=== PATIENT | male | born 1990 | race Caucasian/White ===

== ENCOUNTER 2019-05-06 08:11 | Emergency (ER) | payer BC ==
[2019-05-06] MEDS ORDERED: 0.9 % SODIUM CHLORIDE 1,000 ML BAG IV ONE (08:14)
[2019-05-06] MEDS ORDERED: ACETAMINOPHEN 1,000 MG/100 ML BTL IVPB ONE (08:17)
[2019-05-06] MEDS ORDERED: KETOROLAC 30 MG/ML VIAL IVP ONE (08:17)
[2019-05-06] MEDS ORDERED: MORPHINE SULFATE 10MG/1ML **1ML VIAL IVP ONE ×2 (08:17→09:39)
--- NOTE | 2019-05-06 08:21 | Emergency Department Record ---
History of Present Illness - General Chief complaint: Flank Pain Stated complaint: FLANK PAIN Time Seen by Provider: 05/06/19 08:13 Source: Patient Mode of Arrival: Ambulatory Limitations: No limitations - History of Present Illness Initial comments: 28 yo male presents with right flank pain that started in the last hour. The pain is sharp. He has associated nausea and vomiting. No rash. No hematuria. No dysuria. He has had a passed renal stone once prior. This feels similar. No other complaints as he has been in his usual state of health. He went to bed asymptomatic. He had ureter surgery as a child on the right. He passed the prior stone on the right as well. He denied any complications passing the prior renal stone. No fevers or chills. MD Complaint: Other (Right flank pain) -: Hour(s) (1) Location: Right flank Radiation: Back Severity: Moderate, Severe Quality: Aching, Sharp Consistency: Constant Improves with: None Worsens with: None Other Reports: Nausea/vomiting - Related Data Home Medications Medication Instructions Recorded Confirmed Last Taken Cetirizine HCl [Zyrtec] 10 mg PO DAILY 05/06/19 05/06/19 Unknown Crisaborole [Eucrisa] 60 gm TP DAILY 05/06/19 05/06/19 Unknown Diphenhydramine HCl [Benadryl] 25 mg PO DAILY 05/06/19 05/06/19 Unknown Montelukast Sodium [Singulair] 1 tab PO DAILY 05/06/19 05/06/19 Unknown Triamcinolone Acet Cream [Kenalog 1 apply TP DAILY 05/06/19 05/06/19 Unknown Cream] Previous Rx's Medication Instructions Recorded Hydrocodone/Acetaminophen [[place] 1 tab PO Q6H PRN #12 tab 05/06/19 5mg/325mg] Ondansetron [Zofran Odt] 4 mg PO Q8H #15 tab.rapdis 05/06/19 Tamsulosin HCl [Flomax] 0.4 mg PO DAILY #10 cap.er.24h 05/06/19 Allergies Allergy/AdvReac Type Severity Reaction Status Date / Time No Known Drug Allergies Allergy Verified 05/06/19 09:54 Review of Systems Constitutional: Denies: Chills, Fever, Malaise, Weakness Eyes: Denies: Eye discharge, Eye pain ENT: Denies: Congestion, Throat pain Respiratory: Denies: Cough, Dyspnea Cardiovascular: Denies: Chest pain, Syncope Endocrine: Denies: Fatigue, Polydipsia, Polyuria Gastrointestinal: Reports: As per HPI, Abdominal pain, Nausea, Vomiting. Denies: Constipation, Diarrhea, Hematemesis, Hematochezia, Melena Genitourinary: Denies: Dysuria, Frequency, Hematuria Musculoskeletal: Reports: Back pain. Denies: Arthralgia, Myalgia Skin: Denies: Bruising, Change in color, Rash Neurological: Denies: Headache Psychiatric: Denies: Anxiety Hematological/Lymphatic: Denies: Easy bleeding, Easy bruising Physical Exam - General General Appearance: Alert, Oriented x3, Cooperative, No acute distress Limitations: No limitations - Head Head exam: Atraumatic, Normal inspection - Eye Eye exam: Normal appearance, Conjunctival injection - ENT ENT exam: Normal exam, Mucous membranes moist Ear exam: Normal external inspection Nasal Exam: Normal inspection Mouth exam: Normal external inspection - Neck Neck exam: Normal inspection - Respiratory Respiratory exam: Normal lung sounds bilaterally. negative: Respiratory distress - Cardiovascular Cardiovascular Exam: Regular rate, Normal rhythm, Normal heart sounds - GI/Abdominal GI/Abdominal exam: Soft. negative: Distended, Guarding, Tenderness - Rectal Rectal exam: Deferred - exam: Deferred - Extremities Extremities exam: Normal inspection - Back Back exam: Reports: CVA tenderness (R), Tenderness. Denies: CVA tenderness (L), Rash noted - Neurological Neurological exam: Alert, Oriented X3 - Psychiatric Psychiatric exam: Normal affect, Normal mood. negative: Agitated, Anxious - Skin Skin exam: Dry, Intact, Normal color, Warm Course - Reevaluation(s) Reevaluation #1: 05/06/19 09:24 The CBC is normal The BMP is normal except glucose 129 The patient on recheck is very comfortable, no nausea. CT pending 05/06/19 09:[address] demonstrated 4 x 4 x 6mm proximal ureteral stone with upstream hydro. Umbilical hernia. 05/06/19 09:[address] results. The patient is from [place]. If his pain is controlled he will DC home and follow [facility] Wednesday [facility] the [facility] has not passed. His labs are normal, no signs of complication with the stone. We discussed at length reasons to go to the hospital at home (likely [place]) immediately (pain uncontrolled, fever, retention). He was given a copy of his CT and labs. Medication provided and a strainer. He is familiar with this process from his prior 4mm stone that he passed. 05/06/19 09:58 The patient was prescribed a controlled substance. The prescription does not exceed three days. MAPS was reviewed at the time of the prescripts The topics of abuse, addiction, over dose, dangers of multiple medications, disposal, and illegal distribution were discussed with the patient. The patient verbalized understanding of the risks of the medication being provided 05/06/19 10:14 UA reviewed. N-, LE-, No WBCs. Few bacteria noted. This is highly unlikely infected with all other indicators negative for infection. Clinically no signs of infection. Pain controlled at DC and remaining questions answered Medical Decision Making - Lab Data Result diagrams: 05/06/19 08:30 05/06/19 08:30 Disposition Disposition: Discharge Clinical Impression: Renal colic on right side Disposition: Home, Self-Care Condition: (1) Good Instructions: Renal Colic (ED) Additional Instructions: Be seen immediately if you have uncontrolled pain, uncontrolled vomiting, fever or any other new concerns until the stone passes Call your family doctor Wednesday morning for follow up and a urology referral at home Take the medications as directed and strain your urine Take a copy of the CT scan with your to all your follow up appointments. Prescriptions: Tamsulosin HCl [Flomax] 0.4 mg PO DAILY #10 cap.er.24h Hydrocodone/Acetaminophen [[place] 5mg/325mg] 1 tab PO Q6H PRN #12 tab PRN Reason: Pain - General Ondansetron [Zofran Odt] 4 mg PO Q8H #15 tab.rapdis Forms: Patient Portal Access Time of Disposition: 10:15 Quality - Quality Measures Quality Measures: N/A - Blood Pressure Screening Does Patient Have Any of the Following: No Blood Pressure Classification: Pre-Hypertensive BP Reading Systolic Measurement: 136 Diastolic Measurement: 78 Screening for High Blood Pressure: < Pre-Hypertensive BP, F/U Documented > [G8950] Pre-Hypertensive Follow-up Interventions: Referral to alternative/primary care provider.
[2019-05-06] MEDS ORDERED: ONDANSETRON HCL IV 4 MG/2 ML VIAL IVP ONE (08:34)
[2019-05-06 08:36] LABS: ABSOLUTE NEUTROPHIL COUNT 4.53; BASO % 0.3 % (0-6); EOS % 2.9 % (0-6); GRAN % 62.2 % (47-80); HEMATOCRIT 43.7 % (42.0-52.0); HEMOGLOBIN 15.2 gm/dl (14.0-18.0); LYMPH % 28.8 % (16-45); MEAN CELL VOLUME 82.6 fl (81-97); MEAN CORPUSCULAR HEMOGLOBIN 28.7 pg (27-33); MEAN CORPUSCULAR HGB CONC 34.8 g/dl (32-36); MEAN PLATELET VOLUME 9.1 fl (7.4-10.4); MONO % 5.8 % (0-9); PLATELET COUNT 289 K/uL (130-400); RED BLOOD COUNT 5.29 M/uL (4.40-5.70); RED CELL DISTRIBUTION WIDTH 12.6 % (11.5-14.5); WHITE BLOOD COUNT W/O DIFF 7.3 K/uL (4.2-12.2)
[2019-05-06 08:50] LABS: BLOOD UREA NITROGEN 11 mg/dL (6-20); CREATININE 0.9 mg/dL (0.7-1.2); EST GLOMERULAR FILTRATION RATE > 60 mL/min
[2019-05-06 08:53] LABS: GLUCOSE,RANDOM 129 mg/dL (74-109)
[2019-05-06] MEDS ORDERED: TAMSULOSIN HCL 0.4 MG CAP.ER.24H PO ONE (09:43)
[2019-05-06] MEDS ORDERED: ONDANSETRON 4 MG ODT TABLET SL ONE (09:53)
[2019-05-06] MEDS ORDERED: HYDROCODONE/APAP 7.5/325MG TABLET PO ONE (09:53)
[2019-05-06 10:04] LABS: URINE BILIRUBIN NEGATIVE (NEGATIVE); URINE BLOOD LARGE (NEGATIVE); URINE COLOR YELLOW; URINE GLUCOSE (UA) NEGATIVE (NEGATIVE); URINE KETONE NEGATIVE (NEGATIVE); URINE LEUKOCYTE ESTERASE NEGATIVE (NEGATIVE); URINE NITRITE NEGATIVE (NEGATIVE); URINE UROBILINOGEN 0.2 E.U./dL (0.20 - 1.00)
[2019-05-06 10:11] LABS: URINE APPEARANCE SL CLOUDY
[2019-05-06 10:12] LABS: URINE RBC 21 - 35 (NONE SEEN); URINE WBC 0 - 2 (0-2/hpf)
[2019-05-06 10:13] LABS: URINE AMORPHOUS SEDIMENT 1+; URINE BACTERIA FEW; URINE EPITHELIAL CELLS 0 - 2 (FEW); URINE MUCUS LIGHT
--- NOTE | 2019-05-09 06:47 | CT SCAN REPORT ---
EXAM: CT OF THE ABDOMEN AND PELVIS WITHOUT CONTRAST HISTORY: RIGHT FLANK PAIN FOR ONE DAY. PRIOR RIGHT RENAL CALCULUS. TECHNIQUE: Thin collimation helical CT examination of the abdomen and pelvis was performed without oral or intravenous contrast administration. Lack of oral and IV contrast utilization limits evaluation of the bowel and solid viscera respectively. Comparison: None at this time. Correlation is made with report from CT abdomen and pelvis without contrast dated 10/30/13 from [facility]. FINDINGS: There is mild dependent atelectasis within the right lung base. The lung bases are otherwise clear. No pleural or pericardial effusion. The heart is not enlarged. The liver, spleen, pancreas and adrenal glands are normal in appearance. The gallbladder is unremarkable and no biliary ductal dilatation is seen. The kidneys are normal in position and smoothly marginated. The right kidney is slightly larger than the left. No nephrolithiasis nor renal mass. There is mild to moderate dilatation of the proximal right renal collecting system down to the proximal ureter just beyond the UPJ where there is an obstructing 4 x 4 x 6 mm calculus. The remainder of the right ureter is normal in appearance. The left renal collecting system is normal in appearance. No intraabdominal nor retroperitoneal lymphadenopathy. The vasculature is normal in appearance. A tiny accessory spleen is noted adjacent to the inferior margin of the spleen proper. No pelvis mass, lymphadenopathy or free pelvic fluid. No intrinsic urinary bladder abnormality is seen. No gross bowel dilatation nor bowel wall thickening. The appendix is visualized and normal in appearance. There is mild fat density prominence in the left inguinal canal consistent with spermatic cord lipoma or fat within a small left inguinal hernia sac. There is a small fat filled uncomplicated umbilical/periumbilical hernia. No lytic or blastic bone lesion. IMPRESSION: 1. 4 X 4 X 6 MM OBSTRUCTING CALCULUS IN THE PROXIMAL RIGHT URETER WITH MILD TO MODERATE UPSTREAM COLLECTING SYSTEM DILATATION. NO NEPHROLITHIASIS NOR RENAL MASS. 2. SMALL UNCOMPLICATED FAT FILLED UMBILICAL/PERIUMBILICAL HERNIA. MILD FAT DENSITY PROMINENCE IN THE LEFT INGUINAL CANAL, DISCUSSED ABOVE. JOB NUMBER: [id number] MTDD
== END 2019-05-06 10:36 | disposition home or self-care (01) ==
LOC: ER 08:11
DX: N13.2 Hydronephrosis with renal and ureteral calculous obstruction (principal); R11.2 Nausea with vomiting, unspecified; K42.9 Umbilical hernia without obstruction or gangrene; Z87.442 Personal history of urinary calculi
CPT/HCPCS: 74176; 80048; 81001; 85025; 96374; 96375; 96376; 99284; J1885; J2270; J2405; J7030